=== PATIENT | male | born 1990 | race Caucasian/White ===

== ENCOUNTER 2017-05-14 14:08 | Emergency (ER) | payer MEDICAID ==
[~2017-05-14] VITALS: Ht 172.7 cm; Wt 89.5 kg
[2017-05-14] MEDS ORDERED: PERTUSS(ACELL),DIPH,TET VAC/PF 0.5 ML VIAL IM ONE (15:15)
[2017-05-14] MEDS ORDERED: LIDOCAINE HCL 1% 10 ML VIAL INJ ONE (17:00)
[2017-05-14 17:41] VITALS: BP 130/69
[2017-05-14] MEDS ORDERED: BACITRACIN 0.9 GM PACKET OINTMENT TP ONE (18:00)
== END 2017-05-14 18:19 | disposition home or self-care (01) ==
LOC: EMS 14:09
DX: S61.214A Laceration without foreign body of right ring finger without damage to nail, initial encounter (principal); W20.8XXA Other cause of strike by thrown, projected or falling object, initial encounter; Y93.89 Activity, other specified; Y92.89 Other specified places as the place of occurrence of the external cause; Y99.8 Other external cause status
CPT/HCPCS: 12001; 73130; 90471; 90715; 99284; J3490

== ENCOUNTER 2017-05-23 12:10 | Emergency (ER) | payer MEDICAID ==
[~2017-05-23] VITALS: Ht 172.7 cm; Wt 89.0 kg
[2017-05-23 12:18] VITALS: BP 138/79
== END 2017-05-23 15:00 | disposition left against medical advice (07) ==
LOC: EMS 12:15
DX: Z53.21 Procedure and treatment not carried out due to patient leaving prior to being seen by health care provider (principal)

== ENCOUNTER 2020-09-18 20:21 | Emergency (ER) | payer MEDICAID ==
[~2020-09-18] VITALS: Ht 172.7 cm; Wt 103.2 kg
[2020-09-18] MEDS ORDERED: PENICILLIN G BENZATHINE LA 2,400,000 UNITS/4 ML SYRINGE IM ONE (21:00)
[2020-09-18 21:48] VITALS: BP 144/88
== END 2020-09-18 21:50 | disposition home or self-care (01) ==
LOC: EDUNIT# 20:21 → EMS 20:21
DX: A64 Unspecified sexually transmitted disease (principal); F17.210 Nicotine dependence, cigarettes, uncomplicated
CPT/HCPCS: 36415; 86780; 87491; 87591; 96372; 99283; J0561

== ENCOUNTER 2020-10-06 23:19 | Emergency (ER) | payer SELFPAY ==
[~2020-10-06] VITALS: Ht 175.3 cm; Wt 100.0 kg
[2020-10-07 00:40] VITALS: BP 137/82
[2020-10-07] MEDS ORDERED: DiphenhydrAMINE HCL 25 MG CAPSULE PO ONE (01:00)
[2020-10-07] MEDS ORDERED: PredniSONE 20 MG TABLET PO ONE (01:00)
== END 2020-10-07 01:13 | disposition home or self-care (01) ==
LOC: EMS 23:21
DX: L50.9 Urticaria, unspecified (principal); F17.210 Nicotine dependence, cigarettes, uncomplicated; F19.90 Other psychoactive substance use, unspecified, uncomplicated
CPT/HCPCS: 99283; J7512